=== PATIENT | male | born 1945 | race Caucasian/White ===

== ENCOUNTER 2018-12-08 18:49 | Emergency (ER) | payer MEDICARE, BC, SELFPAY ==
[2018-12-08 18:50] VITALS: BP 154/74; PULSE 66; RESP 14; TEMP 36.9; O2SAT 99
[2018-12-08] MEDS: LIDOCAINE/PRILOCAINE 5 GM TOP (19:33)
--- NOTE | 2018-12-08 20:38 | PC.NURSE ---
ERMD in room doing an I and D procedure on the abcess, small amount of blood and drainage. Right index finger soaked in hot water.
--- NOTE | 2018-12-08 21:04 | ED_ITS ---
HPI - Skin/Abscess/Foreign Bdy General Chief complaint: Skin/Abscess/Foreign Body Stated complaint: right hand index finger swollen and red Time Seen by Provider: 12/08/18 18:57 Source: patient Mode of arrival: ambulatory Limitations: no limitations History of Present Illness HPI narrative: The patient is are visiting locally from [place]. He presents with pain and swelling to the dorsal right index finger. The pain and swelling or proximal to the nail bed. The pain and swelling have involved the finger to the extent he has pain moving the PIP joint. There is slight redness from the site. There is no discharge from the site. The information does not extend clearly to the edge of the nail bed. He has an insulin history that he pricked that finger while cleaning a fish tank about 1 week ago. The injury was under the into the nail bed, not obviously at the site were the inflammatory changes are now occurring. He is right-hand dominant. He is not diabetic. His last tetanus is unknown. Related Data Previous Rx's Medication Instructions Recorded cephalexin [Keflex] 500 mg PO Q6H 10 Days #40 cap 12/08/18 Allergies Allergy/AdvReac Type Severity Reaction Status Date / Time No Known Drug Allergies Allergy Verified 12/08/18 19:07 Review of Systems Constitutional Denies body ache(s), Denies chills and Denies fever(s) Musculoskeletal Comments: Right finger injury/pain as noted in HPI. Integumentary/Breasts Comments: Information ice and to the right index finger, no other skin lesions. Neurologic Comments: No numbness or weakness in the affected finger. PFSH Medical History In good health (Acute) Social History Smoking Status: Former smoker Social History Smoking Status: Former smoker Exam Initial Vital Signs Initial Vital Signs: Vital Signs Temperature 98.5 F 12/08/18 18:50 Pulse Rate 66 12/08/18 18:50 Respiratory Rate 14 12/08/18 18:50 Blood Pressure 154/74 H 12/08/18 18:50 Pulse Oximetry 99 12/08/18 18:50 Const General: cooperative and well developed Nutritional Appearance: well nourished Orientation: alert, awake and oriented x3 Skin Other: Skin lesion on the right index finger, otherwise normal Neuro General: alert, awake and oriented x3 Motor: muscle tone normal throughout Sensory Exam: no sensory deficits noted Extrem Other: Slightly erythematous, warm, tender fluctuant lesion on the dorsal right index, proximal to the nail bed. The edge of the lesion extends to the edges elevated, but is not confluent to the edge of the bed such as a paronychia. There are no obvious foreign bodies or puncture wounds. There is some edema to the finger, slight restriction of motion in the right index PIP joint. There is no inflammation to the dorsal finger, or to the tip of the finger where he reports the puncture wound 1 week ago. Procedures Abscess I/D Site: hand (Dorsal distal right index finger) Side (if applicable): right Local Anesthetic: lidocaine 1% Amount of anesthesia used (mL): 1.5 Technique: incised with #11 blade Amount of fluid expressed (mL): 1 Irrigation: Yes Packing used?: none Complications: bleeding and other (The lesion was initially approached from the cuticle, blood and a small amount of pus for obtain. The lesion was then approached over the central area of induration with fluctuance. A small amount of fluctuance discharge was obtained from that site. There was significant bleeding. ) Course Course Narrative: The site is in the area of paronychia, but appears to be an abscess separate from the nail bed. There was pus expressed. However those repeat swelling , likely from bleeding as he was bleeding a significant amount. Due to the fish tank exposure, possible mycobacterium infection is of concern. I have discussed with the patient this lesion may be difficult to heal. I started him on Keflex. I recommend return the ER if there is significant swelling, worsening of the site. I recommend follow up with his doctor if the site is not revolved when he returns home. Orders Ordered: ED Orders 12/08/18 20:30 Wound Culture and Gram Stain Stat Discontinued Medications Cephalexin HCl (Keflex) 500 mg PO NOW ONE Stop: 12/08/18 21:01 Last Admin: 12/08/18 21:10 Dose: 500 mg Lidocaine/Prilocaine (Lidocaine-Prilocaine Cream) 5 gm TOP NOW ONE Stop: 12/08/18 19:31 Last Admin: 12/08/18 19:33 Dose: 5 gm Tetanus/Diphtheria Toxoids (Td) 0.5 ml IM .ONCE ONE Stop: 12/08/18 21:05 Last Admin: 12/08/18 21:26 Dose: Not Given Vital Signs - 8 hr 12/08/18 18:50 12/08/18 21:25 Temperature 98.5 F Pulse Rate 66 63 Respiratory Rate 14 14 Blood Pressure 154/74 H 135/74 Pulse Oximetry 99 99 Discharge Plan Departure Patient Disposition: Home Clinical Impression: Abscess of finger of right hand Discharge Date/Time: 12/08/18 21:25 Interventions: ED Discharge Assessment Last Done: 12/08/18 21:25 Instructions: DI for Skin Abscess Activity Restrictions/Additional Instructions: Warm water soaks to 3 times daily until improving. Keflex 4 times daily for 10 days. Follow up with her physician in the next week for re-evaluation, return to the ER if these wound obviously the worsens. Based upon the exposure to the fish tank, there is a good possibility that you have a infection more significant than normal skin contamination. This is worthy of a close follow-up. Prescriptions: New cephalexin [Keflex] 500 mg capsule 500 mg PO Q6H 10 Days Qty: 40 RF: 0
[2018-12-08] MEDS: cephALEXin 250 MG CAPSULE 500 MG PO (21:10)
[2018-12-08 21:25] VITALS: BP 135/74; PULSE 63; RESP 14; O2SAT 99
== END 2018-12-08 21:25 | disposition home or self-care (01) ==
PROVIDERS: Emergency Provider Emergency Medicine
DX: L02.511 Cutaneous abscess of right hand (principal)
CPT/HCPCS: 26010; 87070; 87075; 87205; 99282; 99283